=== PATIENT | male | born 1955 ===

== ENCOUNTER 2018-05-16 05:15 | Day surgery (SDC) | payer OTHER ==
[~2018-05-16 05:15] MED LIST: ASPIR 8181 MG PO; COREG CR80 MG PO; CRESTOR10 MG PO; FORTAMET500 MG PO; HYDROCHLOROTHIA25 MG PO; PROCARDIA PO; ZESTRIL30 MG PO
== END 2018-05-16 11:10 | disposition home or self-care (01) ==
LOC: CIR.AMB 05:15
DX: K42.0 Umbilical hernia with obstruction, without gangrene (principal)